=== PATIENT | male | born 2005 | race Caucasian/White ===

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

== ENCOUNTER 2024-05-19 19:20 | Emergency (ER) | payer OTHER, SELFPAY ==
[2024-05-19 19:21] VITALS: BP 120/86; PULSE 76; RESP 18; TEMP 36.7; O2SAT 98; BMI 26.6
[2024-05-19 19:43] LABS: Absolute Lymphocyte Count 2.08 X10^3/uL (0.83-4.51); Absolute Neutrophil Count 6.8 X10^3/uL (2.0-7.7); Basophil# 0.03 X10^3/uL; Basophil% 0.3 % (0-1); Eosinophil# 0.15 X10^3/uL; Eosinophils% 1.5 % (0-5); Hematocrit 44.7 % (40-54); Lymphocyte # 2.08 X10^3/ul (0.83-4.51); Lymphocyte % 21.4 % (19-41); Mean Corp Hgb Conc 33.6 g/dL (32-36); Mean Corpuscular Hgb 27.1 pg (27.0-32.0); Mean Corpuscular Volume 80.8 fL (80-94); Mean Platelet Vol. 10.8 fl (6.2-12.0); Monocyte# 0.62 X10^3/uL; Monocyte% 6.4 % (0-10); NRBC Flagged by Analyzer 0 % (0-5); Neutrophil # 6.81 X10^3/uL (2.7-7.7); Neutrophil % 69.9 % (47-70); Platelet Count 202 K/mm3 (150-450); RBC Distribution Width SD 37.9 fl (35.1-43.9); Red Blood Count 5.53 M/mm3 (4.6-6.2); White Blood Count 9.7 K/mm3 (4.4-11.0)
[2024-05-19 19:56] LABS: Red Blood Cells-Urine 0 SEEN /hpf (0-5); White Blood Cells 0 SEEN /hpf (0-5)
[2024-05-19 20:00] LABS: Color, Urine Yellow (Yellow); Glucose, Dipstick Normal (Normal); Ketone-Dipstick Negative (Negative); Leukocyte Esterase-Dipstick Negative /ul (Negative); Nitrite-Dipstick Negative (Negative); Occult Blood-Urine Negative /ul (Negative); Protein-Dipstick Negative (Negative); Specific Gravity, Urine 1.025 (1.002-1.030); Urine Bilirubin Dipstick Negative (Negative); Urine Clarity Clear (Clear); Urine Urobilinogen Normal (Normal)
[2024-05-19 20:11] LABS: ALB/GLOB Ratio 1.4 RATIO (0.9-2.4); AST(SGOT) 22 U/L (15-37); Alanine Aminotransfer ALT/SGPT 35 U/L (16-61); Albumin, Serum 4.1 g/dL (3.2-5.0); Alkaline Phosphatase 70 U/L (45-117); Anion Gap 7 (5-15); BUN 24 mg/dL (7-18); Calcium,Total 9.2 mg/dL (8.5-10.1); Chloride 106 mmol/L (98-107); Creatinine, Serum 1.09 mg/dL (0.70-1.30); EST Glomerular Filtration Rate 92 mL/min (>60); Est Glom Filt Rate - Afr Amer 111 mL/min (>60); Glucose 98 mg/dL (74-106); Potassium 3.9 mmol/L (3.5-5.1); Protein, Total 7.1 g/dL (6.4-8.2); Sodium Level 139 mmol/L (136-145)
--- NOTE | 2024-05-19 20:16 | EDS_ITS ---
HPI History of Present Illness Chief Complaint: Abd Pain [facility] Medical History Corey-Schlatter's disease Vitiligo Vitiligo of eyelid and periocular area Home Medications ?Medication ?Instructions ?Recorded ?Last Taken ?Type amoxicillin 200 mg/5 mL oral 400 mg (10 mL) PO Q12H ##1 01/21/14 Unknown Rx suspension Allergy/AdvReac Type Severity Reaction Status Date / Time No Known Allergies Allergy Verified 05/19/24 19:23 Social History (System 05/10/21 @ 15:21 by Emmy Sharma) Smoking Status: Never smoker EXAM Physical Exam Const Vital Signs: 05/19/24 19:21 05/19/24 21:21 05/19/24 23:00 Temperature 98.0 F Temperature Source Temporal Pulse Rate 76 60 Respiratory Rate 18 Blood Pressure 120/86 H 127/70 H 110/61 Blood Pressure Mean 97 89 76 Pulse Ox 98 Oxygen Delivery Method Room Air MDM [facility] MDM Narrative Medical decision making narrative: HISTORY OF PRESENT ILLNESS: 18-year-old male presents with concern for right lower abdominal pain. Denies nausea. Further states this began earlier today. Notes pain in the right abdomen while at football practice. 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 Notes is worse with movement of the abdomen. REVIEW OF SYSTEMS: Pertinent positives: Abdominal pain Pertinent negatives: Nausea vomiting PHYSICAL EXAM: Nursing triage notes reviewed, Vital signs reviewed Constitutional: please see mdm HENT: MMM Eyes: Pupils equal round and reactive to light, Extraocular muscles intact Neck: No stridor, no JVD, full neck ROM Lungs: Clear to auscultation, No wheezing or rales. No increased work of breathing, no conversational dyspnea, no accessory muscle use, no nasal flaring. No respiratory distress noted Heart: Regular rate and rhythm, No murmurs, No rubs and No gallops, 2+ distal pulses (radial, femoral, posterior tibial) in all extremities Abdomen: Soft, right side abdominal wall TTP, no pain at McBurney's point. No rigidity, rebound or guarding, no obvious peritoneal signs, no palpable pulsatile abdominal masses, no auscultated abdominal bruit : No CVAT Extremities: No edema Neuro: No focal neurological deficits, cranial nerves II through XII intact, 5/5 strength in all extremities. Intact sensation to light touch in all extremities, 2+ reflexes bilateral patella tendons. Normal gait. No ataxia. Skin: No rash or lesions noted MEDICAL DECISION MAKING: Chief Complaint: Abdominal pain External records reviewed: Prior ED visits reviewed, Prior imaging reviewed. Factors affecting care: none reported Social determinants of health: none reported History obtained from others: none Consults: none MDM Narrative: The patient was initially hemodynamically stable, afebrile nontoxic-appearing. Abdominal exam [] I considered the following differential diagnosis: AAA, small bowel obstruction, abdominal perforation, appendicitis, pancreatitis, hepatobiliary pathology (acute cholecystitis), mesenteric ischemia, pathology (ie nephrolithiasis, pyelonephritis). I treat the patient with IV fluids, Toradol and Zofran for initial pain control and nausea control. ALL IMAGES (IF OBTAINED) HAVE BEEN PERSONALLY REVIEWED AND INTERPRETED BY MYSELF. Protocol orders placed in triage secondary to adverse department condition including high-volume high patient acuity. Orders placed for the following: CBC, BMP, LFTs, urinalysis, CBC with no leukocytosis, no anemia or thrombocytopenia BMP without evidence of significant electrolyte abnormalities, no anion gap, no acute kidney injury. LFTs show no evidence of hepatobiliary pathology. I added the following labs after evaluate the patient performing a thorough history and physical exam: CT scan abdomen pelvis with no evidence of acute appendicitis. Patient likely suffered from abdominal wall muscle strain. Recommended Tylenol ibuprofen for home-going and PCP follow-up. Gave strict return precautions peer The patient and/or family, caregivers express understanding. The patient and/or family, caregivers agrees with the plan. Shared decision making: I will have a discussion with the patient and or visitors regarding risk/benefits of further testing or admission. They will be made aware of of the risk/benefits inherent in this decision they will be given the opportunity to voice understanding. Total critical care time today provided was at least 0 minutes. This excludes separately billable procedures. Critical care time (if documented) is secondary to the patient having high probability of clinically significant/life threatening deterioration in the patient's condition which required my urgent intervention. Impression: 1. Acute abdominal pain 2. Abdominal wall muscle strain Dispo: Discharge home This note was generated with [employer] software. It may contain incorrect words, spelling, and punctuation that were not noted in review of the chart prior to signing. Lab Data Labs: Laboratory Results - last 24 hr 05/19/24 05/19/24 19:30 19:47 WBC 9.7 RBC 5.53 Hgb 15.0 Hct 44.7 MCV 80.8 MCH 27.1 MCHC 33.6 RDW Std Deviation 37.9 RDW Coeff of Mariela 13.0 Plt Count 202 MPV 10.8 Immature Gran % (Auto) 0.500 Neut % (Auto) 69.9 Lymph % (Auto) 21.4 [place] % (Auto) 6.4 Eos % (Auto) 1.5 Baso % (Auto) 0.3 Absolute Neuts (auto) 6.8 Absolute Lymphs (auto) 2.08 Nucleated RBC % 0 Sodium 139 Potassium 3.9 Chloride 106 Carbon Dioxide 26.0 Anion Gap 7 BUN 24 H Creatinine 1.09 Estim Creat Clear Calc 109.00 Est GFR (MDRD) Af Amer 111 Est GFR (MDRD) Non-Af 92 BUN/Creatinine Ratio 22.0 H Glucose 98 Calcium 9.2 Total Bilirubin 0.30 AST 22 ALT 35 Alkaline Phosphatase 70 Total Protein 7.1 Albumin 4.1 Globulin 3.0 Albumin/Globulin Ratio 1.4 Urine Color Yellow Urine Clarity Clear Urine pH 6.0 Ur Specific [place] 1.025 Urine Protein Negative Urine Glucose (UA) Normal Urine Ketones Negative Urine Occult Blood Negative Urine Nitrite Negative Urine Bilirubin Negative Urine Urobilinogen Normal Ur Leukocyte Esterase Negative Urine RBC 0 SEEN Urine WBC 0 SEEN Ur Squamous Epith Cells 0-5 SEEN Urine Bacteria 1+ Urine Mucus 1+ Radiography Diagnostic Testing: Clinical Impression(s) from Imaging Studies Abdomen/Pelvis CT 05/19/24 21:08 IMPRESSION: 1. No acute abnormality. 2. Normal appendix. Electronically Signed: Geovanni Beckford DO at 22:39 EDT , Discharge Plan Triage Chief Complaint: Abd Pain ED Provider: Adolfo King Dx/Rx/DC Orders Prescriptions: No Action amoxicillin 200 MG/5 ML bottle 400 mg PO Q12H Qty: 1 0RF Rx Instructions: ten days Primary Care Provider: Migel Sierra Referrals: Migel Sierra DO [Primary Care Provider] - Print Language: Amharic
[2024-05-19 20:17] LABS: Bacteria 1+ /hpf (None Seen); Squamous Epithelial Cells - UA 0-5 SEEN /hpf (0-5)
[2024-05-19 20:19] LABS: Mucous, Urine 1+ /hpf (<or=2+)
--- NOTE | 2024-05-19 21:08 | CT_ITS ---
INDICATION: RLQ PAIN EXAMINATION: CT Abdomen And Pelvis W/ Contrast Injection TECHNIQUE: Helically acquired images were obtained of the abdomen and pelvis with sagittal and coronal reconstructed images. Individualized dose optimization techniques were used for this CT. IV contrast dosage and agent: 100 mL of Isovue 300. Oral contrast: None. COMPARISON: None. FINDINGS: VESSELS: No abdominal aortic aneurysm or dissection. LIVER: No evidence of a mass. No intrahepatic or extrahepatic biliary duct dilation. GALLBLADDER: No calcified stones. No evidence of cholecystitis. PANCREAS: No focal solid or cystic mass. No evidence of pancreatitis. SPLEEN: Normal. ADRENAL GLANDS: Normal. KIDNEYS AND URETERS: No urinary tract stone. No hydronephrosis or hydroureter. No significant asymmetric perinephric stranding. URINARY BLADDER: Unremarkable. BOWEL: No evidence of diverticulosis or diverticulitis. Appendix appears normal. No evidence of bowel obstruction. REPRODUCTIVE ORGANS: No evidence of a pelvic mass. PERITONEUM: No intraabdominal free fluid or free air. LYMPH NODES: No pathologically enlarged mesenteric or retroperitoneal lymph nodes. ABDOMINAL WALL: No abdominal or pelvic wall hernia. BONES: No acute abnormality. LOWER CHEST: Visualized lung bases are unremarkable. CT/Abdomen/Pelvis W IV Cont ONLY IMPRESSION: 1. No acute abnormality. 2. Normal appendix. Electronically Signed: Geovanni Beckford DO at 22:39 EDT ,
[2024-05-19 21:21] VITALS: BP 127/70; PULSE 60
[2024-05-19 23:00] VITALS: BP 110/61
[2024-05-19 23:30] VITALS: BP 110/61; PULSE 63; RESP 18; TEMP 36.4
== END 2024-05-19 23:31 | disposition home or self-care (01) ==
PROVIDERS: Emergency Provider Emergency Medicine; PCP Pediatrics; Visit Provider Emergency Medicine
DX: R10.9 Unspecified abdominal pain (principal); S39.011A Strain of muscle, fascia and tendon of abdomen, initial encounter
CPT/HCPCS: 74177; 80053; 81001; 85025; 99282; Q9967; A4216